=== PATIENT | female | born 1985 | race Caucasian/White ===

== ENCOUNTER 2016-11-30 10:02 | Emergency (ER) | payer OTHER ==
[2016-11-30 10:17] VITALS: BP 120/80
--- NOTE | 2016-11-30 10:37 | UC ---
- HPI Summary HPI Summary: 30F presents with needle stick today. 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 She states she missed the vein and was going to withdrawal it when the needle slipped and she poke herself in the left index finger. There was a minimal amount of blood from the stick. She immediately cleaned the area with soap and water. The needle stick area is not visible on exam. She was wearing gloves when it occurred. She believes her tetanus is up to date in the past 10 years. She had her hep B vaccines. The source patient labs were sent for HIV testing. source patient name is Lucas Cooley. - History of Current Complaint Chief Complaint: UCBodyFluidExposure Stated Complaint: NEEDLE STICK Time Seen by Provider: 11/30/16 10:17 PMH/Surg Hx/FS Hx/Imm Hx Endocrine History: Other Other Endocrine History: no DM Cardiovascular History: Other Other Cardiovascular History: no HTN - Surgical History Surgical History: None - Family History Known Family History: Positive: Hypertension - Social History Alcohol Use: None Substance Use Type: None Smoking Status (MU): Never Smoked Tobacco Review of Systems Constitutional: Negative Respiratory: Negative Cardiovascular: Negative All Other Systems Reviewed And Are Negative: Yes Physical Exam Triage Information Reviewed: Yes Appearance: Well-Appearing Vital Signs: Initial Vital Signs Temp 98.3 F 11/30/16 10:10 Pulse 79 11/30/16 10:10 Resp 16 11/30/16 10:10 BP 120/80 11/30/16 10:10 Pulse Ox 100 11/30/16 10:10 Vital Signs Reviewed: Yes Eye Exam: Normal ENT: Positive: Normal ENT inspection, Pharynx normal, TMs normal Respiratory: Positive: Lungs clear, Normal breath sounds Cardiovascular: Positive: RRR Abdomen Description: Positive: Nontender, Soft Bowel Sounds: Positive: Present Neurological: Positive: Alert Psychological: Positive: Age Appropriate Behavior Skin Exam: Normal Needlestick Course/Dx - Course Course Of Treatment: 30F presents with needle stick today. 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 She states she missed the vein and was going to withdrawal it when the needle slipped and she poke herself in the left index finger. There was a minimal amount of blood from the stick. She immediately cleaned the area with soap and water. The needle stick area is not visible on exam. She was wearing gloves when it occurred. She believes her tetanus is up to date in the past 10 years. She had her hep B vaccines. The source patient labs were sent for HIV testing. discussed with patient extensively about PEP and risks vs benefits. due to not knowning source HIV status likely in timely manner patient wants to start PEP. gave referral for Dr Huber and for outpatient lab work. patient will try to find out patient HIV status before 72 hours and if not will start PEP. sent script to [facility] as called and have medication. patient understands and agrees with plan. - Diagnoses Provider Diagnoses: Needle stick injury
[2016-11-30 12:28] LABS: Hematocrit 43 % (35-47); Hemoglobin 14.3 g/dl (12.0-16.0); Mean Corpuscular HGB Conc 34 g/dl (31-36); Mean Corpuscular Hemoglobin 32 pg (27-31); Mean Corpuscular Volume 94 fL (80-97); Mean Platelet Volume 7 um3 (7.4-10.4); Red Blood Count 4.53 10^6/ul (4.0-5.4); Red Cell Distribution Width 13 % (10.5-15); White Blood Count 5.6 10^3/ul (3.5-10.8)
[2016-11-30 12:52] LABS: ALT 10 U/L (7-52); AST 16 U/L (13-39); Albumin 4.1 g/dL (3.2-5.2); Alkaline Phosphatase 48 U/L (34-104); Anion Gap 5 mmol/L (2-11); BUN/Creatinine Ratio 16.2 (8-20); Blood Urea Nitrogen 11 mg/dL (6-24); CO2 Carbon Dioxide 27 mmol/L (22-32); Calcium 9.6 mg/dL (8.6-10.3); Chloride 105 mmol/L (101-111); EGFR Non-African American 100.3 (>60); Globulin 3.4 g/dL (2-4); Glucose 88 mg/dL (70-100); Potassium 4.1 mmol/L (3.5-5.0); Sodium 137 mmol/L (133-145); Total Protein 7.5 g/dL (6.4-8.9)
--- NOTE | 2016-11-30 17:00 | UC ---
Progress - Progress Note Progress Note: Looked up source patient ([id number]) and patient HIV was negative. left vm with patient explaining results and that patient does not need PEP anymore.
--- NOTE | 2016-12-01 10:28 | UC ---
Progress - Progress Note Progress Note: Looked up source patient ([id number]) and patient HIV was negative. left vm with patient explaining results and that patient does not need PEP anymore. 12/01/16 See above note. Patient's labs returned. Contact patient with results. Within normal limits; neg HCG; pos B Surface antibody. Hola Watson MD
== END 2016-11-30 11:15 | disposition home or self-care (01) ==
LOC: UCEAST 10:02
DX: Z13.0 Encounter for screening for diseases of the blood and blood-forming organs and certain disorders involving the immune mechanism (principal)
CPT/HCPCS: 36415; 80053; 84702; 85025; 86703; 86706; 86803; 87340; 99202; G0463

== ENCOUNTER 2017-05-08 15:47 | Emergency (ER) | payer BC, OTHER ==
[2017-05-08 17:40] VITALS: BP 102/66
--- NOTE | 2017-05-19 08:31 | UC ---
Gertrude Gomez Julia, scribed for Fabricio Allen MD on 05/08/17 at 1750 . General HPI - HPI Summary HPI Summary: This patient is a 31 year old F [place] [facility] [place] a chief complaint of R sided throat and ear pain for the past three days. The patient rates the pain 7/ 10 in severity. Patient reports recent illness with cough that is currently resolved. Patient denies weight gain, heat or cold intolerances, fever abdominal pain, chest pain, and chest palpitations. Patients current symptoms are similar to previous strep throat symptoms. Symptoms disrupt sleep. - History of Current Complaint Chief Complaint: UCGeneralIllness Stated Complaint: SORE THROAT, AND EAR ACHE Hx Obtained From: Patient Hx Last Menstrual Period: 04/25/17 Onset/Duration: Lasting Days Timing: Constant Pain Intensity: 7 Pain Location at: R ear R throat Similar Episode/Dx as: strep throat Related Hx: Recent Illness - Allergy/Home Medications Allergies/Adverse Reactions: Allergies Allergy/AdvReac Type Severity Reaction Status Date / Time No Known Allergies Allergy Verified 05/08/17 17:32 Home Medications: Home Medications Ibuprofen TAB* [Motrin TAB* 400 MG] 400 mg PO Q6H PRN 05/08/17 [History Confirmed 05/08/17] PMH/Surg Hx/FS Hx/Imm Hx - Additional Past Medical History Additional PMH: patient denies possibility of . She is currently taking oral contraceptives. Previously Healthy: Yes - Surgical History Surgical History: None Surgery Procedure, Year, and Place: denies - Family History Known Family History: Positive: Hypertension, Other - thyroid CA - Social History Alcohol Use: None Substance Use Type: None Smoking Status (MU): Never Smoked Tobacco Review of Systems Constitutional: Negative - fever, weight gain, heat/cold, intolerances ENT: Sore Throat Cardiovascular: Negative Gastrointestinal: Negative All Other Systems Reviewed And Are Negative: Yes Physical Exam Triage Information Reviewed: Yes Vital Signs: Initial Vital Signs Temp 98.8 F 05/08/17 17:35 Pulse 71 05/08/17 17:35 Resp 14 05/08/17 17:35 BP 102/66 05/08/17 17:35 Pulse Ox 100 05/08/17 17:35 Vital Signs Reviewed: Yes - Additional Comments Appearance: Well-appearing, Well-nourished Skin: Warm ENT: enlarged R tonsil without visible exudates Neck: Supple, tenderness at R cervical lymphadenopathy R Respiratory: Clear to auscultation Cardiovascular: Normal S1, S2. No murmurs. Normal distal pulses in tibial and radial bilaterally. Psychiatric: Normal General: No acute distress Course/Dx - Differential Dx - Multi-Symptom Provider Diagnoses: pharyngitis Discharge - Discharge Plan Condition: Improved Disposition: HOME Prescriptions: Amoxicillin PO (*) [Amoxicillin 875 MG (*)] 875 mg PO BID #14 tab Patient Education Materials: Pharyngitis (ED) Referrals: No Primary Care Phys,NOPCP [Primary Care Provider] - Additional Instructions: PLEASE TAKE MEDICATIONS DIRECTED PLEASE KEEP YOURSELF WELL HYDRATED WITH SMALL AMOUNTS OF FLUID MORE FREQUENTLY THROUGHOUT THE DAY PLEASE SEEK MEDICAL ATTENTION IMMEDIATELY IF YOU HAVE ANY WORSENING OR CONCERNING SYMPTOMS PLEASE MAKE AN APPOINTMENT TO BE SEEN BY YOUR PRIMARY CARE DOCTOR WITHIN 1 WEEK The documentation as recorded by the Gertrude quinonez Julia accurately reflects the service I personally performed and the decisions made by me, Fabricio Allen MD.
== END 2017-05-08 18:24 | disposition home or self-care (01) ==
LOC: UCEAST 15:47
DX: J02.9 Acute pharyngitis, unspecified (principal); H92.01 Otalgia, right ear
CPT/HCPCS: 87651; 99212; G0463

== ENCOUNTER 2019-02-28 02:55 | Inpatient (IN) | payer BC ==
[2019-02-28] MEDS ORDERED: Lactated Ringers 1000 ML Bag* 1,000 ML IV ONE (03:59)
[2019-02-28] MEDS ORDERED: Buffered Lidocaine 1% SYRIN* 1 ML/SYRINGE INTRADERM ONE (03:59)
[2019-02-28] MEDS ORDERED: Lactated Ringers 1000 ML Bag* 1,000 ML IV SCH ×2 (04:00→14:00)
--- NOTE | 2019-02-28 04:09 | HP ---
General Information - Reason for Visit Prelabor rupture of membranes followed by onset active labor - General Information Maternal Age: 33 Grav: 1 Para: 0 SAB: 0 IEA: 0 Estimated Due Date: 02/21/19 Determined By: LMP Gestational Age in Weeks/Days: 41 0/7 Maternal Blood Type and Rh: O Positive - Results this Serology/RPR Result: Non-Reactive Rubella Result: Non-Immune HBsAg Result: Negative HIV Result: Negative GBS Culture Result: Negative Past Medical History Delivery History: See Records Pertinent Past Medical History: See Records - depression/ anxiety Pertinent Past Surgical History: None Pertinent Family History: See Records - hypothyroidism - Antepartal Records Antepartal Records: Reviewed, Complicated by: - rubella nonimmune Review of Systems Constitutional: Uncomfortable CV Complaint: No Respiratory: Shortness of Breath: No Gastrointestinal: No Nausea/Vomiting, Normal Bowel Movement Genitourinary: Leaking Fluid, No Dysuria, No Bleeding Musculoskeletal: No Epigastric Pain, Contractions Neurological: Headache - had PEC labs drawn yesterday evening, WNL Movement: Normal Exam Allergies/Adverse Reactions: Allergies No Known Allergies Allergy (Verified 02/28/19 03:27) T-98.2, P-83, R-18, BP-123/78, O2- 100% - Measurements Height: 5 ft 8 in Weight: 85.729 kg Weight in lbs: 189.529080 Body Mass Index (BMI): 28.7 Pre- Weight: 69.853 kg Weight Gained This : 35 lbs and 0 ozs - Exam Breast: Breast Exam Deferred CVA: No CVA Tenderness Extremities: No Edema Heart: Normal Rhythm/Heart Sounds HEENT: No Significant Findings Lungs: Clear Bilaterally Rectal: Rectal Exam Deferred Reflexes: DTR 2+ Thyroid: No Thyromegaly - Abdominal Exam Abdomen Exam: Non-Tender, Fundal Height Consistent with Dates - Ultrasound/Biophysical Profile Ultrasound Status: Not Done Targeted Exam Findings See L&D Outpatient Visit Provider Note for Findings: Yes Estimated Weight: 8# Cervical Exam: 5cm Effacement: 100% Station: 0 Presenting Part: Vertex Membrane Status: SROM Amniotic Fluid Evaluation: Gross Rupture Bleeding/Discharge: None EFM Findings - External Monitor Findings Baseline Heart Rate: 130 External Monitor Findings: Accelerations Present, No Pattern of Variable or Late Decelerations, Variability Moderate, Baseline Stable Contractions: Regular, Moderate, 45-90 Seconds Contraction Frequency: 2-4 Assessment/Plan - Assessment 33 year old at 41 0/7 weeks gestation with membranes ruptured 11 hours, was PROM, now in active labor. No evidence of acidemia or chorioamnionitis. - Obstetrical Risk Factors Obstetrical Risk Factors: Post-Dates - Plan Plan: Admit - Anticipate Vaginal Delivery - Date/Time of Admission Date of Admission: 02/28/19 Time of Admission: 03:05
--- NOTE | 2019-02-28 06:38 | PN ---
Progress Note - Progress Note Date of Service: 02/28/19 SOAP: Subjective: Pt reports increased pressure, moaning and breathing through ctx, appears to be coping well. sleeping, hand tapper and sister at bedside providing support. Objective: Cervix: 8cm/ 100%/ +1/ vtx FHR: Doppler 130 through ctx UCs: 2-5 minutes Temp: 97.8 BP: 123/78 Assessment: Pt making great progress. No evidence of chorioamnionitis or acidemia. Plan: Continue labor support and comfort measures. Pain relief as requested. Anticipate .
--- NOTE | 2019-02-28 07:35 | PN ---
Progress Note - Progress Note Date of Service: 02/28/19 Note: Pt reports increased pressure and some urge to bear down. Cervix with anterior lip, easily reduced. FHR 140 per doppler. UCs every 3-5 minutes. Pt okay to bear down as needed, will encourage more concerted pushing when fully dilated. Anticipate .
--- NOTE | 2019-02-28 09:13 | PN ---
Progress Note - Progress Note Date of Service: 02/28/19 Note: Quick Note: Pt complete and starting to push with direction. Anticipate
[2019-02-28] MEDS ORDERED: Oxytocin in LR* 20 UNITS/1,000 ML BAG IVPB ONE (10:29)
[2019-02-28] MEDS ORDERED: Oxytocin in LR* 20 UNITS/1,000 ML BAG IVPB SCH ×2 (10:30→13:47)
--- NOTE | 2019-02-28 11:49 | PN ---
Progress Note - Progress Note Date of Service: 02/28/19 Note: S: Pt has been pushing effectively since 904. She is changing positions frequently (right side, left side, squat, lunge, upright on toilet, on her back , seated, laying back). IV pitocin augmentation started at 1037. Pt tiring but still putting forth a good effort. O: T 97.8 FHT 135bpm. Min-mod variability with pushing. Occ variable decel, recovers to baseline UCs q 2-3 min IV pit at 4mu VE C/C/Caput at +1, Vtx at 0 Unchanged in the last 1.25 hours A: IUP at 41 weeks in active labor Slow progress with pushing in the past hour plus Cat II FHT - doubt metabolic acidemia P: Pt up to bathroom to try and void. If unable to plan straight cath. Trial rest for the next 20-30 min without active pushing. Consult Dr. Navarro who will come to bedside to evaluate pt's pushing and progress
[2019-02-28] MEDS ORDERED: Measles, Mumps,Rubella VACC* 0.5 ML/VIAL SUBCUT ONE (13:47)
[2019-02-28] MEDS ORDERED: Glycerin ADULT SUPP PR PRN (13:47)
[2019-02-28] MEDS ORDERED: Acetaminophen TAB* 325 MG PO PRN (13:47)
--- NOTE | 2019-02-28 13:53 | PN ---
Progress Note - Progress Note Date of Service: 02/28/19 Note: Late Entry: Pt with slow steady progress with pushing x 4+ hours. Dr. Navarro paged to bedside to assess for vacuum assisted vaginal at 1315. See MD delivery note
[2019-02-28] MEDS: Witch Hazel PAD* JAR TOPICAL PRN (16:12)
[2019-02-28] MEDS: Dibucaine 1% 28.35 GM TUBE PR PRN (16:12)
[2019-02-28] MEDS: Docusate CAP* 100 MG PO SCH ×2 (16:12→22:21)
[2019-02-28] MEDS: Ibuprofen TAB* 600 MG PO SCH ×2 (16:12→22:19)
--- NOTE | 2019-02-28 19:34 | PROCNOTE ---
[facility] OB: Delivery Note - Delivery A Date of : 02/28/19 Time of : 13:31 [place] Sex: Male Weight at : 8 lb 15 oz Score 1 Minute: 9 Score 5 Minutes: 9 Gestational Age in Weeks and Days at Delivery: 41 Weeks and 0 Days Delivery Method: Low Vacuum Extraction, Vaginal Labor: Spontaneous Did Patient attempt ?: N/A, No Previous Amniotic Fluid: Clear Estimated Blood Loss: 400 Anesthesia/Analgesia: Other Anesthesia Comment: Local to perineum for repair only Delivered By: Lane Navarro JR - Nursery Level of Nursery: Regular/Bedside - Perineum Perineal Injury: Vaginal Laceration, 3rd Degree Extension Perineal Injury Comment: 3rd Degree laceration and right labial laceration Perineal Repair: By Delivering Practioner - 3rd degree laceration and right labial laceration repaired in the usual fashion with multiple layers with 2-0 Vicryl and 3-0 Vicryl. Rectal exam performed prior to performance of repair and there was no evidence of 4th degree laceration. Rectal exam performed after completion of repair and again no evidence of 4th degree laceratio and no sutures were palpable on rectal exam. - Events Delivery Events of Note: Pitocin During Labor, Pushed > 3 Hours Delivery Events of Note Comment: Outlet Vacuum Assisted Vaginal Delivery - Additional Delivery Notes Additional Delivery Notes: 33 y/o G1, pushing x greater than 3 hours. Vacuum assistance provided secondary to maternal fatigue. The risks, benefits and alternative of VAVD were discussed with patient prior to application of Kiwi vacuum including risk of cephalohematoma, shoulder dystocia, vacuum failure and necessity for urgent procession . The head was palpated to be in OA orientation at 2+ station. Pelvis felt to be adequate for vaginal delivery and there was low suspicion for macrosomia. Bladder had been emptied with a straight catheter prior to vacuum placement. The Kiwi vacuum device was applied over the sagittal suture and about 3cm in front of the posterior fontanelle toward the face. Vacuum pressure was created with the hand pump and established at 500mm Hg. Edge of the cup was carefully examined and no maternal tissue was entrapped. With the left hand applying counter pressure on the vacuum cup to prevent pop-off, right hand applied gentle horizontal traction along the pelvic axis, in coordination with contractions and maternal pushing effort. Descent was noted just prior to a pop-off x 1. The head was delivered after the second application of the Kiwi and second attempt at pushing with kiwi application. The cup was removed after the head delivered. The shoulders and remainder of the body were delivered without difficulty. The placenta was delivered by the CNM. A 3rd degree laceration and a right labial laceration were noted and repaired by this insurance writer with 2-0 and 3-0 vicryl in the usual fashion. The third degree laceration was repaired with 2-0 Vicryl suture. The spincter was grasped on either side with allis clamps and 2-0 vicryl interrupted sutures were applied x 4 to re-approximate the muscle and the capsule. The remainder of the repair was performed in the usual fashion. Rectal exam was performed both prior to and after completion of repair with no evidence of 4th degree laceration or suture in the rectum. Mother and doing well at time of this note.
[2019-03-01] MEDS: Simethicone TAB* 80 MG TAB.CHEW PO SCH (01:44)
[2019-03-01] MEDS: Ibuprofen TAB* 600 MG PO SCH ×3 (05:04→18:56)
[2019-03-01 05:55] LABS: ABS Basophils 0.2 10^3/ul (0-0.2); ABS Lymphocytes 2.5 10^3/ul (1.0-4.8); ABS Monocytes 0.9 10^3/ul (0-0.8); ABS Neutrophils 14.2 10^3/ul (1.5-7.7); Eosinophil % 0.3 %; Hematocrit 26 % (35-47); Hemoglobin 8.6 g/dL (12.0-16.0); Lymphocyte % 14.1 %; Mean Corpuscular HGB Conc 33 g/dL (31-36); Mean Corpuscular Hemoglobin 28 pg (27-31); Mean Corpuscular Volume 86 fL (80-97); Mean Platelet Volume 7.4 fL (7.4-10.4); Platelet Count 278 10^3/uL (150-450); Red Blood Count 3.03 10^6 /uL (3.70-4.87); Red Cell Distribution Width 15 % (10-15); White Blood Count 17.9 10^3/uL (3.5-10.8)
[2019-03-01] MEDS: Docusate CAP* 100 MG PO SCH ×2 (09:55→23:20)
[2019-03-01] MEDS: Ferrous Gluconate TAB* 324 MG TAB PO SCH ×2 (10:02→23:20)
[2019-03-01] MEDS: Dibucaine 1% 28.35 GM TUBE PR PRN (11:54)
[2019-03-01] MEDS: Witch Hazel PAD* JAR TOPICAL PRN (11:54)
[2019-03-02] MEDS: Ibuprofen TAB* 600 MG PO SCH ×3 (00:32→08:01)
[2019-03-02] MEDS: Dibucaine 1% 28.35 GM TUBE PR PRN (06:23)
[2019-03-02] MEDS: Witch Hazel PAD* JAR TOPICAL PRN (06:23)
[2019-03-02] MEDS: Docusate CAP* 100 MG PO SCH (08:02)
[2019-03-02] MEDS: Ferrous Gluconate TAB* 324 MG TAB PO SCH (08:02)
[2019-03-02 08:18] VITALS: BP 103/62
== END 2019-03-02 13:08 | disposition home or self-care (01) | DRG 542 ==
LOC: MCHOBOUT 02:55 → MCHOB 03:05
PROVIDERS: ADMIT Midwife; ATTEND Midwife
PROC: 10D07Z6 Extraction of Products of Conception, Vacuum, Via Natural or Artificial Opening (ICD-10-PCS; principal; 2019-02-28)
PROC: 0DQR0ZZ Repair Anal Sphincter, Open Approach (ICD-10-PCS; 2019-02-28)
DX: O48.0 Post-term pregnancy (principal); Z37.0 Single live birth; O70.20 Third degree perineal laceration during delivery, unspecified; O99.344 Other mental disorders complicating childbirth; F41.8 Other specified anxiety disorders; O90.81 Anemia of the puerperium; D64.89 Other specified anemias; Z3A.41 41 weeks gestation of pregnancy
CPT/HCPCS: 36415; 85025; 90707; A9270-GY

== ENCOUNTER 2021-08-19 16:35 | Inpatient (IN) ==
[2021-08-19 18:06] LABS: Urine Benzodiazepine Screen None Detected (None Detect); Urine Cannabinoids Screen None Detected (None Detect); Urine Opiates Screen None Detected (None Detect)
[2021-08-19] MEDS: Witch Hazel PAD JAR TOPICAL PRN (22:37)
[2021-08-19] MEDS: Dibucaine 1% OINT 28.35 GM TUBE PR PRN (22:37)
[2021-08-19] MEDS ORDERED: Lactated Ringers 1000 ml BAG 1,000 ML IV SCH (23:00)
[2021-08-19] MEDS ORDERED: Oxytocin in LR 20 UNITS/1,000 ML BAG IVPB SCH (23:00)
[2021-08-19] MEDS ORDERED: Lidocaine 1% MPF 5 ML VIAL ONE (23:02)
[2021-08-20 07:30] LABS: ABS Basophils 0.1 10^3/ul (0-0.2); ABS Lymphocytes 2.1 10^3/ul (1.0-4.8); ABS Monocytes 0.8 10^3/ul (0-0.8); Eosinophil % 0.2 %; Hematocrit 29 % (35-47); Hemoglobin 9.6 g/dL (12.0-16.0); Lymphocyte % 16.3 %; Mean Corpuscular HGB Conc 33 g/dL (31-36); Mean Corpuscular Hemoglobin 28 pg (27-31); Mean Corpuscular Volume 85 fL (80-97); Mean Platelet Volume 7.8 fL (7.4-10.4); Platelet Count 269 10^3/uL (150-450); Red Blood Count 3.41 10^6 /uL (3.70-4.87); Red Cell Distribution Width 15 % (10-15); White Blood Count 13.1 10^3/uL (3.5-10.8)
[2021-08-21] MEDS: Witch Hazel PAD JAR TOPICAL PRN (08:28)
[2021-08-21] MEDS: Dibucaine 1% OINT 28.35 GM TUBE PR PRN (08:28)
[2021-08-21 09:32] VITALS: BP 113/78
== END 2021-08-21 16:15 | disposition home or self-care (01) | DRG 807 ==
LOC: MCHOBOUT 16:35 → MCHOB 17:16
PROVIDERS: ADMIT Midwife; ATTEND Midwife